=== PATIENT | female | born 1950 | race Caucasian/White ===

== ENCOUNTER → 2017-12-28 | Outpatient (CLI) | payer OTHER ==
[~2017-12-28] VITALS: Ht 152.4 cm; Wt 86.2 kg
[~2017-12-28] MED LIST: ASPIR 8181 MG PO; COREG6.25 MG PO; LISINOPRIL2.5 MG PO; MOBIC7.5 MG PO; OMEGA-31000 M1 PO; SYNTHROID112 MC1 PO; VITAMINC500 PO; ZOCOR20 MG PO
--- NOTE | ~2017-12-28 | CATHLAB ---
[facility] [place] [address] INVASIVE PROCEDURE REPORT Name: JESUBEBE Nelly Room #: REG [facility]#: [id number] Admission: 12/28/17 Attend Phys: Hasmukh Jin Discharge: Date of : 48 Date of Service: 12/31/17 1259 Report #: [id number] THIS REPORT FOR: //name// APPROVED REPORT Study performed: 12/28/2017 10:58:57 Patient Details Patient Status: Out-Patient Room #: The patient is a 67 year-old female Event Personnel Hasmukh Mosqueda Brake Reliner, Keysha Thomas RN RN, Sofia Solomon RTR, [place] David Monitor Procedures Performed Left Heart Cath w/or w/o Coronaries [id number] [facility] supervision of conscious sedation Indication Positive stress test, Chest pain Procedure Narrative The Right Groin^ was infiltrated with 1% Lidocaine subcutaneous anesthesia. A PINNACLE 4FR Sheath #[id number] sheath was inserted into the RFA^. Coronary angiography was performed using coronary diagnostic catheters. The right coronary system was accessed and visualized with a JR4 catheter. The left coronary system was accessed and visualized with a JL4 catheter. The left ventricle was accessed and visualized with a PIGTAIL catheter. Left ventricular/Aortic Valve gradient assessed via catheter pullback. Hemostasis was obtained with manual pressure following sheath removal without any complications. There was no hematoma. Intraoperative Conscious Sedation Sedation start time: 12.04 Case end Time: 12.48 Versed 2 mg Fluoro Time: 1.48 minutes Dose: DAP 2593 cGycm2 369 mGy Contrast Type and Amount: Omnipaque 45 ml Coronary Angiography [facility] [place] [address] [place] [address] INVASIVE PROCEDURE REPORT Name: BEBE NAILS Room #: REG [facility]#: [id number] Admission: 12/28/17 Attend Phys: Hasmukh Jin Discharge: Date of : 48 Date of Service: 12/31/17 1259 Report #: [id number] The patient's coronary anatomy is right dominant. Diagnostic Cath Left Main Left main normal origin bifurcates that into his left circumflex mild tapering but free of high-grade disease LAD Multiple moderate caliber type II vessel which courses in the anterior interventricular sulcus with luminal irregularities noted. No high-grade lesions are seen as it courses and terminates as a small bifurcating vessel at the apex Diagonal 1 Small right caliber vessel coursing on the anterolateral wall free of significant high-grade lesions Circumflex On her to large caliber vessel coursing the AV groove giving rise to an early moderate caliber marginal branch. This is a 90% ostial lesion with a unfavorable takeoffs for intervention. It appears to be at a 90 angle and involving the main juncture of the circumflex proper. The circumflex then continues on without significant high-grade lesion terminating and posterior aspect of left ventricle OM1 Moderate caliber vessel percent proximal lesion. The proximal lesion is evident unfavorable angle for percutaneous revascularization and does not appear to have significantly limiting flow. OM2 Small-caliber vessel without significant high-grade lesions Right Coronary Want to large caliber dominant vessel of normal origin coursing the anterior interventricular sulcus was a 20-25% proximal concentric lesion which is not flow-limiting. The sodium continues on giving rise to posterior descending artery with only luminal irregularities in its course R PDA Multiple moderate caliber vessel without significant high-grade lesions Left Ventriculography Left Ventriculography was not performed. Hemodynamics The aortic pressure is 132/69 mmHg with a mean of 94 mmHg. The left ventricular pressure is 148/6 mmHg with a mean of mmHg. The left ventricular end diastolic pressure is 19 mmHg. There was no gradient across the aortic valve upon pullback. Pullback from the left ventricle to the aorta revealed no gradient across the aortic valve. Conclusion 1. Coronary disease, single vessel involving an ostial first marginal branch of the circumflex. It is an unfavorable origin at the site of [facility] [address] [place] [address] INVASIVE PROCEDURE REPORT Name: BEBE NAILS Room #: REG [facility]#: [id number] Admission: 12/28/17 Attend Phys: Hasmukh Jin Discharge: Date of : 48 Date of Service: 12/31/17 1259 Report #: [id number] the lesion and therefore optimization of medical management will be recommended initially. It fails then would proceed with a bifurcating stent of that vessel. 2. Normal hemodynamics Recommendations Cardiac Risk Reduction Program Aggressive Medical Therapy <ELECTRONICALLY SIGNED> By: Hasmukh Mosqueda MD 12/31/17 1259 1259 1259 Hasmukh Mosqueda MD /INF
[2017-12-28 10:09] VITALS: BP 135/62
[2017-12-28 10:42] LABS: HEMATOCRIT 35.2 % (37.0-47.0); MCH 28.9 pg (26.0-34.0); MCHC 34.1 g/dL (28.0-37.0); MCV 84.7 fL (80.0-100.0); RBC 4.16 mil/uL (4.20-5.00); RDW 14.9 % (10.5-14.5); WBC 7.3 thou/uL (4.0-11.0)
[2017-12-28 10:53] LABS: CALCIUM 9.6 mg/dL (8.5-10.1); CREATININE 0.8 mg/dL (0.6-1.0); POTASSIUM 4.4 mmol/L (3.5-5.1)
== END | disposition home or self-care (01) ==
LOC: CATH 08:13
PROVIDERS: Internal Medicine
DX: I25.10 Atherosclerotic heart disease of native coronary artery without angina pectoris (principal); I11.0 Hypertensive heart disease with heart failure; I50.9 Heart failure, unspecified; I42.9 Cardiomyopathy, unspecified; E78.5 Hyperlipidemia, unspecified; E66.09 Other obesity due to excess calories; F17.210 Nicotine dependence, cigarettes, uncomplicated; Z90.710 Acquired absence of both cervix and uterus; Z90.49 Acquired absence of other specified parts of digestive tract; Z79.82 Long term (current) use of aspirin; Z79.899 Other long term (current) drug therapy

== ENCOUNTER → 2018-08-22 | Outpatient (CLI) | payer OTHER ==
--- NOTE | 2018-08-27 20:17 | SLE ---
[facility] [place] [address] POLYSOMNOGRAPHY STUDY Name: BEBE NAILS Nelly Room #: REG [facility]#: [id number] Admission: 08/22/18 ������������������ Attend Phys: Praveen Salmeron MD Discharge: ������������������ Date of : 48 Report #: [id number] THIS REPORT FOR: //name// CC: Praveen Salmeron FAM unknown Hasmukh Mosqueda MD DATE OF SERVICE: 08/23/2018 ATTENDING PHYSICIAN: Hasmukh Mosqueda MD. The patient is 67 years old who weighs 183 pounds with a BMI of 34.6. The patient's [place] score was 15. The patient underwent a split night study performed at [facility]. During the night study, the patient spent 477 minutes in bed and slept for 269 minutes with a low sleep efficiency of 56%. Sleep latency was 23 minutes with a REM latency of 255 minutes. Overall sleep architecture showed increased stage 1 sleep, normal stage 2 sleep, absent N3 sleep and normal REM sleep. During the initial diagnostic portion of the study, the patient slept for 57 minutes after spending 211 minutes in bed. During that time, the patient had 5 obstructive apneas, 2 central apneas, no mixed apneas and 37 hypopneas. The patient's apnea-hypopnea index was 46 per hour with an absent REM sleep during the diagnostic portion. The supine AHI was 97 per hour. EKG monitoring revealed an average heart rate of 56 beats per minute. No sustained arrhythmias observed. PLMS were seen at an index of 18 per hour and 5 per hour caused EEG arousals. Nocturnal oximetry study revealed an average oxygen saturation of 93% with the lowest of 85%. Only 7 minutes were spent at in oxygen saturation of less than 89%. The patient met the criteria for CPAP initiation. It was started at 8 cm of water and titrated up to 19 cm of water. At the final pressure, the patient slept for 18 minutes. The patient had lateral REM sleep. No supine sleep seen. The patient's AHI was reduced to 0 per hour and oxygen saturation remained above 93%. IMPRESSION: 1. Severe sleep apnea-hypopnea syndrome with an apnea-hypopnea index of 46 per hour. 2. Nocturnal hypoxia secondary to obstructive sleep apnea, but resolved with CPAP. [facility] [address] [place] [address] POLYSOMNOGRAPHY STUDY Name: BEBE NAILS Room #: REG [facility]#: [id number] Admission: 08/22/18 ������������������ Attend Phys: Praveen Salmeron MD Discharge: ������������������ Date of : 48 Report #: [id number] 3. Mild periodic limb movements during sleep, which did improve while on CPAP and as such does not need to be treated. RECOMMENDATIONS: 1. CPAP at 19 cm of water completely eliminated the patient's sleep apnea and should be used on a nightly basis. 2. Follow up in 4-6 weeks to assess compliance with CPAP and to document clinical improvement. 3. Weight loss is strongly advised. 4. Avoid SPORTS RECRUITER depressants. 5. Cautioned regarding driving until symptoms of sleep apnea resolve with the use of CPAP. 6. If the patient's insomnia does not improve after treatment of sleep apnea, then it should be further evaluated and treated according to the etiology. ��������������������������������������������� <ELECTRONICALLY SIGNED> ���������������������������������������� By: Praveen Salmeron MD ��������������������������������������������� 08/27/182016 0047 0125 Praveen Salmeron MD /nt
== END ==
LOC: SLEEPLAB 14:46
DX: G47.33 Obstructive sleep apnea (adult) (pediatric) (principal); G47.34 Idiopathic sleep related nonobstructive alveolar hypoventilation

== ENCOUNTER → 2019-01-21 | Outpatient (CLI) | payer OTHER ==
--- NOTE | 2019-01-23 08:23 | SLE ---
[facility] [place] [address] POLYSOMNOGRAPHY STUDY Name: BEBE NAILS Room #: REG [facility]#: [id number] Admission: 01/21/19 Attend Phys: Sheeba Alford MD Discharge: Date of : 48 Report #: [id number] THIS REPORT FOR: //name// CC: Sheeba Alford [facility] Panda Julian MD DATE OF SERVICE: 01/21/2019 REFERRING PHYSICIAN: Dr. Jakub Julian. The patient is 68 years old who weighs 183 pounds with a BMI of 34.6. The patient was found to have severe obstructive sleep apnea for which she was prescribed 19 cm of CPAP. She has been compliant with CPAP with a recent download showing AHI of less than 1 per hour. However, she was not tolerating the higher CPAP pressure well and was having mask leak as well. As a result, she was referred for BiPAP titration study performed at [facility]. During the night study, the patient spent 517 minutes in bed and slept for 369 minutes with a sleep efficiency of 71%. Sleep latency was 37 minutes with a REM latency of 81.5 minutes. Sleep architecture showed increased stage 1 and stage 2 sleep, absent slow wave and normal REM sleep. EKG monitoring revealed an average heart rate of 59 beats per minute. No sustained arrhythmias observed. No clinically significant PLM seen. The patient was started on BiPAP at a pressure of 8/4 and titrated up to 14/6. At the final pressure, the patient slept for 10.5 minutes. The patient did not have REM sleep. The patient did have 4 central apneas resulting in an AHI of 40 per hour. However, the patient did better with a lower BiPAP pressure of 12/6. At that pressure, the patient slept for 197 minutes including 50 minutes of REM sleep. The patient had supine sleep as well. The patient's AHI was reduced to 6.4 per hour and oxygen saturations remained above 88%. It seems that the patient was having central apneas beyond this pressure. IMPRESSION: 1. Severe sleep apnea diagnosed by previous sleep study. 2. No clinically significant periodic limb movements. RECOMMENDATIONS: 1. BiPAP at a pressure of 12/6 should be used on a nightly basis. I would recommend follow up with a download data to make sure AHI remains less than 5 per hour. The patient did develop central apneas on higher pressure. [facility] [address] [place] [address] POLYSOMNOGRAPHY STUDY Name: BEBE NAILS Room #: REG [facility]#: [id number] Admission: 01/21/19 Attend Phys: Sheeba Alford MD Discharge: Date of : 48 Report #: [id number] 2. Weight loss is advised. 3. Avoid DRY BOX OPERATOR depressants. 4. Cautioned regarding driving until symptoms of sleep apnea have resolved with the use of BiPAP. <ELECTRONICALLY SIGNED> By: Praveen Salmeron MD 01/23/19 0823 1503 1521 Praveen Salmeron MD /nt
== END ==
LOC: SLEEPLAB 10:21
DX: G47.33 Obstructive sleep apnea (adult) (pediatric) (principal)